=== PATIENT | male | born 1990 | race Caucasian/White ===

== ENCOUNTER 2017-03-08 10:56 | Emergency (ER) | payer SELFPAY ==
[~2017-03-08] VITALS: Ht 190.5 cm; Wt 71.5 kg
[2017-03-08 10:57] VITALS: BP 140/87; PULSE 91; RESP 20; TEMP 98.5; O2SAT 100
[2017-03-08] MEDS ORDERED: AMOX500C PO (11:43)
[2017-03-08] MEDS ORDERED: MAGICPED SWISH-SPIT (11:43)
[2017-03-08] MEDS ORDERED: PERI0.126 SWISH-SPIT (11:43)
--- NOTE | 2017-03-08 11:44 | PD ---
HPI Chief Complaint: Oral / Dental Pain or Problem Time Seen by Provider: 11:41 Travel History International Travel<30 days: No Contact w/Intl Traveler<30days: No Traveled to known affect area: No History of Present Illness HPI 26-year-old male presents emergency Department with complaint of right upper tooth pain 2 days. Noticed some milky white drainage from the area this morning. Denies fever, vomiting. Denies facial edema. Has taken Tylenol for symptom management. Symptoms are mild in severity. Has no other medical complaints. Allergies to ibuprofen. No other modifying factors or associated signs and symptoms. PFSH Social History Tobacco Use: No Allergies-Medications (Allergen,Severity, Reaction): Coded Allergies: ibuprofen (Verified Allergy, Severe, Anaphylaxis, 03/08/17) Reported Meds & Prescriptions Reported Meds & Active Scripts Active Peridex Liq (Chlorhexidine Gluconate (Mouth) Liq) 0.12% Soln 15 Ml SWISH-SPIT BID 10 Days Magic Mouthwash Pediatric/Adult Liq (Lidocaine/Diphenhydr/Alum/Mg/Simeth) 60 Ml Susp 5 Ml SWISH-SPIT Q3HR PRN Each 5mL contains: Diphenydramine 4.5mg, Viscous Lidocaine 2% 10mg, Maalox Advanced Regular Strength 2.7ml Amoxicillin 500 Mg Cap 500 Mg PO BID 10 Days Review of Systems Except as stated in HPI: all other systems reviewed are Neg Physical Exam Narrative GENERAL: Well-nourished, well-developed female patient, in no acute distress; afebrile, nontoxic-appearing SKIN: Warm and dry. HEAD: Atraumatic. Normocephalic. No facial edema, erythema, tenderness on palpation. No lymphadenopathy. EYES: Pupils equal and round. No scleral icterus. No injection or drainage. ENT: Mucosa pink and moist. Airway patent. MOUTH: Mucous membranes moist, no lesions, tongue and gums appear normal. Poor dentition throughout. Tooth #3 is decayed down to the gumline; areas with tenderness on palpation; no drainage noted. Surrounding gingiva is without erythema, edema, drainage. No obvious abscess noted. NECK: Trachea midline. No lymphadenopathy. CARDIOVASCULAR: Regular rate. RESPIRATORY: No accessory muscle use. GASTROINTESTINAL: Flat. MUSCULOSKELETAL: No obvious deformities. No clubbing. No cyanosis. No edema. NEUROLOGICAL: Awake and alert. Oriented 3. No obvious cranial nerve deficits. Motor grossly within normal limits. Normal speech. PSYCHIATRIC: Appropriate mood and affect; insight and judgment normal. Data Data Last Documented VS Vital Signs Date Time Temp Pulse Resp B/P (MAP) Pulse Ox O2 Delivery O2 Flow Rate FiO2 03/08/17 11:48 03/08/17 10:57 98.5 91 20 100 Room Air Orders Orders Acetaminophen (Tylenol) (03/08/17 12:00) MDM Medical Decision Making Medical Screen Exam Complete: Yes Emergency Medical Condition: Yes Medical Record Reviewed: Yes Differential Diagnosis Toothache, dental abscess, dental caries, gingivitis Narrative Course 26-year-old male with poor dentition throughout and dentalgia tooth #3 that is decayed down to the gumline. Patient is afebrile and nontoxic-appearing. Denies fever, vomiting. Has no facial edema or erythema. Amoxicillin, Magic mouthwash, Peridex mouth rinse prescribed for home. Patient allergic to ibuprofen. Instructed patient take Tylenol as directed nausea for pain. Patient provided emergency dental information sheet. Instructed patient to follow up with dentist. Instructed patient to follow up with primary care provider. Patient verbalizes understanding and agreement with treatment plan. Patient is medically cleared and stable for discharge. Discussed reasons to return to the emergency department. Patient agrees with treatment plan. The patients vital signs are stable and the patient is stable for outpatient follow- up and treatment. Patient discharged home, stable and in no acute distress. Diagnosis Primary Impression: Dentalgia Referrals: Dentist Primary Care Physician Patient Instructions: Dental Abscess (ED), Dental Caries (ED), General Instructions, Toothache (ED) Departure Forms: Tests/Procedures, Work Release Enter return to work date: Mar 09, 2017 Additional Instructions: Complete full course of antibiotics Tylenol as directed and as needed to reduce pain and inflammation Use Magic mouthwash rinse as directed and as needed to decrease pain Use Peridex as directed for oral hygiene Warm or cool compresses to the affected area Follow-up with dentist Follow-up with primary care provider Return to emergency department immediately with worsening of symptoms Med/Other Pt SpecificInfo: Prescription(s) given Scripts Chlorhexidine Gluconate (Mouth) Liq (Peridex Liq) 0.12% Soln 15 ML SWISH-SPIT BID for 10 Days, #473 ML 0 Refills Prov: Anastasiia Blount 03/08/17 Hzpjojwlrsammtt-Dvvwzmmmi-Bjf-Alum-Simeth Liq (Magic Mouthwash Pediatric/Adult Liq) 60 Ml Susp 5 ML SWISH-SPIT Q3HR Y for PAIN SCALE 1 TO 10, #60 ML 0 Refills Each 5mL contains: Diphenydramine 4.5mg, Viscous Lidocaine 2% 10mg, Maalox Advanced Regular Strength 2.7ml Prov: Anastasiia Blount 03/08/17 Amoxicillin (Amoxicillin) 500 Mg Cap 500 MG PO BID for Infection for 10 Days, CAP 0 Refills Prov: Anastasiia Blount 03/08/17 Disposition: 01 DISCHARGE HOME Condition: Stable Anastasiia Blount Mar 08, 2017 11:44
[2017-03-08] MEDS ORDERED: ACETAMINOPHEN 325 MG TAB PO ONE (12:00)
== END 2017-03-08 12:05 | disposition home or self-care (01) ==
LOC: NEPK 10:56
DX: K08.89 Other specified disorders of teeth and supporting structures (principal); K02.9 Dental caries, unspecified
CPT/HCPCS: 99284

== ENCOUNTER 2017-05-05 14:46 | Emergency (ER) | payer OTHER ==
[~2017-05-05] VITALS: Ht 177.8 cm; Wt 70.0 kg
[~2017-05-05 14:46] MED LIST: AMOX500C PO; MAGICPED SWISH-SPIT; PERI0.126 SWISH-SPIT
[2017-05-05 14:50] VITALS: BP 124/72; PULSE 80; RESP 14; O2SAT 100
--- NOTE | 2017-05-05 15:46 | RADRPT ---
EXAM DATE/TIME: 05/05/2017 15:28 [facility] COMPARISON: No previous studies available for comparison. INDICATIONS : Right ankle pain after twisting ankle at work today. MEDICAL HISTORY : Smoker. SURGICAL HISTORY : None. ENCOUNTER: Initial ACUITY: 1 day PAIN SCORE: 3/10 LOCATION: Right entire ankle. FINDINGS: Three views of the right ankle demonstrate no fracture or dislocation. Ankle mortise is intact. Outside Collector alization is within normal limits and there is no significant arthropathy. No soft tissue abnormality or radiopaque foreign body is identified. There is a 4 mm sclerotic focus in the lateral malleolus l ikely representing a bone island. CONCLUSION: No acute right ankle abnormality is identified. Kevin Francisco MD on May 05, 2017 at 15:43 Board Certified Radiologist. This report was verified electronically.
--- NOTE | 2017-05-05 16:53 | PD ---
HPI Chief Complaint: Injury Time Seen by Provider: 16:50 Travel History International Travel<30 days: No Contact w/Intl Traveler<30days: No Traveled to known affect area: No History of Present Illness HPI 26-year-old male presents to emergency department complaining of right ankle pain after twisting at work while walking around a desk. First pain to lateral and medial aspects. Denies paresthesias, loss of sensation to the affected extremity. Pain is worse with flexion and extension of the foot. Has not taken any medication or tried any treatments to alleviate his symptoms. Rates pain 7/10. Describes pain as a throbbing sensation. Says the pain shoots up his leg when he moves his ankle. Pain is worse with trying to ambulate. Pain is decreased while at rest. Allergies ibuprofen. Has no medical complaints. No other modifying factors or associated signs and symptoms. [facility] Social History Alcohol Use: Yes Tobacco Use: No Substance Use: No Allergies-Medications (Allergen,Severity, Reaction): Coded Allergies: ibuprofen (Verified Allergy, Severe, Anaphylaxis, 03/08/17) Reported Meds & Prescriptions Reported Meds & Active Scripts Active Peridex Liq (Chlorhexidine Gluconate (Mouth) Liq) 0.12% Soln 15 Ml SWISH-SPIT BID 10 Days Magic Mouthwash Pediatric/Adult Liq (Lidocaine/Diphenhydr/Alum/Mg/Simeth) 60 Ml Susp 5 Ml SWISH-SPIT Q3HR PRN Each 5mL contains: Diphenydramine 4.5mg, Viscous Lidocaine 2% 10mg, Maalox Advanced Regular Strength 2.7ml Amoxicillin 500 Mg Cap 500 Mg PO BID 10 Days Review of Systems Except as stated in HPI: all other systems reviewed are Neg Physical Exam Narrative GENERAL: Well-nourished, well-developed male patient, in no acute distress SKIN: Warm and dry. HEAD: Atraumatic. Normocephalic. EYES: Pupils equal and round. No scleral icterus. No injection or drainage. ENT: Mucosa pink and moist. Airway patent. NECK: Trachea midline. CARDIOVASCULAR: Regular rate. RESPIRATORY: No accessory muscle use. GASTROINTESTINAL: Flat. MUSCULOSKELETAL: Right ankle with point tenderness to the lateral and medial malleolar sounds; with edema and without erythema or ecchymosis; no obvious deformity; 2+ pedal pulse; sensory intact. No obvious deformities. No clubbing. No cyanosis. No edema. NEUROLOGICAL: Awake and alert. Oriented 3. No obvious cranial nerve deficits. Motor grossly within normal limits. Normal speech. PSYCHIATRIC: Appropriate mood and affect; insight and judgment normal. Data Data Last Documented VS Vital Signs Date Time Temp Pulse Resp B/P (MAP) Pulse Ox O2 Delivery O2 Flow Rate FiO2 05/05/17 14:50 80 14 124/72 (89) 100 Orders Orders Ankle, Complete (Sah7cef) (05/05/17 15:17) Splint Or Brace Apply/Monitor (05/05/17 16:50) Crutches (05/05/17 16:50) Ed Discharge Order (05/05/17 16:50) MDM Medical Decision Making Medical Screen Exam Complete: Yes Emergency Medical Condition: Yes Medical Record Reviewed: Yes Differential Diagnosis Ankle fracture, ankle strain, ankle injury Narrative Course 26-year-old male with right ankle injury. I offered the patient pain medication while in the ER and he declined. Right ankle x-ray ordered. 1650: Right ankle x-ray concludes: Last 24 hours Impressions Ankle X-Ray 05/05/17 1517 Signed Impressions: Service Date/Time: April 15:28 - CONCLUSION: No acute right ankle abnormality is identified. Kevin Francisco MD X-ray findings discussed with the patient. José Miguel bandage, ankle stirrup splint, crutches provided for support. Patient is allergic to ibuprofen. Instructed patient to take Tylenol as directed and as needed for pain. Instructed patient to follow up with primary care provider. Patient verbalizes understanding and agreement with treatment plan. Patient is medically cleared and stable for discharge. Discussed reasons to return to the emergency department. Patient agrees with treatment plan. The patients vital signs are stable and the patient is stable for outpatient follow-up and treatment. Patient discharged home, stable and in no acute distress. Diagnosis Primary Impression: Right ankle sprain Qualified Codes: S93.401A - Sprain of unspecified ligament of right ankle, initial encounter Referrals: [facility] Primary Care Physician Patient Instructions: Ankle Sprain (ED), Ankle Stirrup Splint (ED), Crutch Instructions (ED), General Instructions Additional Instructions: Tylenol or ibuprofen as directed and as needed for pain and inflammation Rest, ice, compress, and elevate extremity to decrease pain and inflammation Ankle Brace for support José Miguel bandage for compression and support Crutches for support Avoid aggravating activity; increase activity as tolerated Follow-up with primary care provider Return to the emergency department immediately with worsening of symptoms Med/Other Pt SpecificInfo: No Meds Exist/No RX given Disposition: 01 DISCHARGE HOME Condition: Stable Anastasiia Blount ELECT[employer] MECH[employer]ICAL TECHNICIAN May 05, 2017 16:53
== END 2017-05-05 17:04 | disposition home or self-care (01) ==
LOC: NEPK 14:46
DX: S93.401A Sprain of unspecified ligament of right ankle, initial encounter (principal); X50.1XXA Overexertion from prolonged static or awkward postures, initial encounter; Y93.01 Activity, walking, marching and hiking; Y99.0 Civilian activity done for income or pay
CPT/HCPCS: 73610; 99283; E0113; L1906

== ENCOUNTER 2017-08-12 21:25 | Emergency (ER) | payer SELFPAY ==
[2017-08-12 21:26] VITALS: BP 145/85; PULSE 80; RESP 16; TEMP 98.3; O2SAT 100
[2017-08-12] MEDS ORDERED: CLIN150C14 PO (21:52)
[2017-08-12] MEDS ORDERED: ACETAMINOPHEN/HYDROcodone 325 MG/5 MG TAB PO ONE (22:00)
[2017-08-12] MEDS ORDERED: CLINDAMYCIN INJ 900 MG in SODIUM CHLORIDE 0.9% INJ 100 ML IV ONE (22:00)
--- NOTE | 2017-08-12 22:21 | PD ---
HPI Chief Complaint: Oral / Dental Pain or Problem Time Seen by Provider: 21:46 Travel History International Travel<30 days: No Contact w/Intl Traveler<30days: No Traveled to known affect area: No History of Present Illness HPI 27-year-old male complains of facial pain. He has been taking amoxicillin for a dental infection which was switched to clindamycin today took 1 150 mg tablet. His is no significant improvement. No fever. He follows with [facility]. The pain is worse with palpation. Constant throbbing quality is reported. Marginal improvement with NSAIDs. PFSH Past Medical History Hepatitis: Yes (c) Past Surgical History Cholecystectomy: Yes Social History Alcohol Use: Yes Tobacco Use: No Substance Use: No Allergies-Medications (Allergen,Severity, Reaction): Coded Allergies: ibuprofen (Verified Allergy, Severe, Anaphylaxis, 03/08/17) Reported Meds & Prescriptions Reported Meds & Active Scripts Active Peridex Liq (Chlorhexidine Gluconate (Mouth) Liq) 0.12% Soln 15 Ml SWISH-SPIT BID 10 Days Magic Mouthwash Pediatric/Adult Liq (Lidocaine/Diphenhydr/Alum/Mg/Simeth) 60 Ml Susp 5 Ml SWISH-SPIT Q3HR PRN Each 5mL contains: Diphenydramine 4.5mg, Viscous Lidocaine 2% 10mg, Maalox Advanced Regular Strength 2.7ml Reported Clindamycin (Clindamycin HCl) 150 Mg Cap 150 Mg PO Q6H Review of Systems Except as stated in HPI: all other systems reviewed are Neg General / Constitutional: No: Fever HENT: Positive: Dental Difficulties Physical Exam Narrative GENERAL: Well-nourished well-developed 27-year-old male mild distress secondary to pain SKIN: Warm and dry. HEAD: Atraumatic. Normocephalic. EYES: Pupils equal and round. No scleral icterus. No injection or drainage. ENT: No nasal bleeding or discharge. Mucous membranes pink and moist. Dental fractures of the right second premolar and first molar with marked tenderness. No appreciable fluctuance or abscess on the gingival or buccal mucosa. Generalized swelling about the right face maxillary distribution. Right face is tender. No fluctuance. NECK: Trachea midline. No JVD. CARDIOVASCULAR: Regular rate and rhythm. RESPIRATORY: No accessory muscle use. Clear to auscultation. Breath sounds equal bilaterally. GASTROINTESTINAL: Abdomen soft, non-tender, nondistended. Hepatic and splenic margins not palpable. MUSCULOSKELETAL: Extremities without clubbing, cyanosis, or edema. No obvious deformities. NEUROLOGICAL: Awake and alert. No obvious cranial nerve deficits. Motor grossly within normal limits. Five out of 5 muscle strength in the arms and legs. Normal speech. Data Data Last Documented VS Vital Signs Date Time Temp Pulse Resp B/P (MAP) Pulse Ox O2 Delivery O2 Flow Rate FiO2 08/12/17 21:26 98.3 80 16 145/85 (105) 100 Room Air Orders Orders Clindamycin Inj (Cleocin Inj) (08/12/17 22:00) ^ Insert Iv (08/12/17 21:50) Acetamin-Hydrocod 325-5 Mg ([place] 5-325 (08/12/17 22:00) Ed Discharge Order (08/12/17 22:15) [facility] Medical Decision Making Medical Screen Exam Complete: Yes Emergency Medical Condition: Yes Medical Record Reviewed: Yes Differential Diagnosis Abscess, dental carry, cellulitis Narrative Course Patient has clindamycin. We'll give a dose of IV clindamycin here, 900mg. Anticipated resolution of pain swelling and pain. the patient will return if there isn't marked improvement by late tomorrow morning. Diagnosis Primary Impression: Dental infection Referrals: Dentist 2 days Med/Other Pt SpecificInfo: No Meds Exist/No RX given Disposition: 01 DISCHARGE HOME Condition: Stable Berny Gallardo MD Aug 12, 2017 22:21
== END 2017-08-12 23:14 | disposition home or self-care (01) ==
LOC: NEPC 21:25
DX: K04.7 Periapical abscess without sinus (principal); Z86.19 Personal history of other infectious and parasitic diseases; Z88.6 Allergy status to analgesic agent; Z79.899 Other long term (current) drug therapy
CPT/HCPCS: 96365

== ENCOUNTER 2017-08-19 22:27 | Emergency (ER) | payer SELFPAY ==
[~2017-08-19] VITALS: Ht 190.5 cm; Wt 70.0 kg
[~2017-08-19 22:27] MED LIST changes: -AMOX500C PO; +CLIN150C14 PO
[2017-08-19 22:32] VITALS: BP 154/82; PULSE 111; RESP 26; O2SAT 100
[2017-08-19 22:33] VITALS: PULSE 45; O2SAT 45
[2017-08-19] MEDS ORDERED: ONDANSETRON HCL 4 MG/2 ML VIAL ONE (22:33)
[2017-08-19 22:35] VITALS: BP 154/82; PULSE 111; RESP 26; TEMP 98.7; O2SAT 100; O2SAT 89; O2SAT 99
[2017-08-19] MEDS ORDERED: NALOXONE HCL 0.4 MG/ML AMP IV PUSH ONE (22:45)
[2017-08-19] MEDS ORDERED: SODIUM CHLOR 0.9% 1000 ML INJ 1,000 ML IV ONE (22:45)
--- NOTE | 2017-08-19 23:33 | PD ---
HPI Chief Complaint: OD/ Ingestion Time Seen by Provider: 22:36 Travel History International Travel<30 days: No Contact w/Intl Traveler<30days: No Traveled to known affect area: No History of Present Illness HPI Patient is a 27-year-old male presents emergency department from the waiting room for evaluation of altered mental status. On initial presentation patient is obtunded,. GCS of 3, unable to provide any history. After initial resuscitative efforts the patient did admit to having heroin tonight. Discovered by mother and father who states they were having visitation rights with him today and then on the way back to his [facility] he allegedly injected heroin in the back of their car. They drove him here for emergent evaluation. Symptoms are severe, context as above, associated with pale skin diaphoresis and apnea, now resolved. PFSH Past Medical History Hepatitis: Yes (c) Tetanus Vaccination: Unknown Influenza Vaccination: No Past Surgical History Cholecystectomy: Yes Social History Alcohol Use: No Tobacco Use: Yes Substance Use: Yes (heroin) Allergies-Medications (Allergen,Severity, Reaction): Coded Allergies: ibuprofen (Verified Allergy, Severe, Anaphylaxis, 03/08/17) Reported Meds & Prescriptions Reported Meds & Active Scripts Active Peridex Liq (Chlorhexidine Gluconate (Mouth) Liq) 0.12% Soln 15 Ml SWISH-SPIT BID 10 Days Magic Mouthwash Pediatric/Adult Liq (Lidocaine/Diphenhydr/Alum/Mg/Simeth) 60 Ml Susp 5 Ml SWISH-SPIT Q3HR PRN Each 5mL contains: Diphenydramine 4.5mg, Viscous Lidocaine 2% 10mg, Maalox Advanced Regular Strength 2.7ml Reported Clindamycin (Clindamycin HCl) 150 Mg Cap 150 Mg PO Q6H Review of Systems Except as stated in HPI: all other systems reviewed are Neg Physical Exam Narrative GENERAL: Well-developed thin, GCS of 3 agonal respirations SKIN: Focused skin assessment warm/dry. HEAD: Atraumatic. Normocephalic. EYES: Pupils pinpoint and sluggish response ENT: No nasal bleeding or discharge. Mucous membranes pink and moist. NECK: Trachea midline. No JVD. CARDIOVASCULAR: Very bradycardic. RESPIRATORY: Agonal respirations GASTROINTESTINAL: Abdomen soft, non-tender, nondistended. Hepatic and splenic margins not palpable. MUSCULOSKELETAL: No obvious deformities. No clubbing. No cyanosis. No edema. NEUROLOGICAL: GCS of 3, agonal respirations PSYCHIATRIC: Later denied any suicidal or homicidal ideation. Data Data Last Documented VS Vital Signs Date Time Temp Pulse Resp B/P (MAP) Pulse Ox O2 Delivery O2 Flow Rate FiO2 08/20/17 00:08 84 16 122/69 (86) 100 08/19/17 22:35 98.7 Nasal Cannula 2.00 08/19/17 22:35 100 Orders Orders Ondansetron Inj (Zofran Inj) (08/19/17 22:33) Naloxone Inj (Narcan Inj) (08/19/17 22:45) Sodium Chlor 0.9% 1000 Ml Inj (Ns 1000 M (08/19/17 22:45) MDM Medical Decision Making Medical Screen Exam Complete: Yes Emergency Medical Condition: Yes Differential Diagnosis Opiate overdose, heroin overdose, hypoxic respiratory failure, head injury unlikely. Narrative Course Patient room to the emergency department, obtunded, highly consistent with acute narcotic overdose. Patient was roomed emergently, [id number] was initiated by me, and 100% O2 is saturation wrote from 44 with excellent waveform to 99% on bag valve mask, IV access was obtained and he was given 0.8 mg of Narcan which completely reverses mental status and brought him to a GCS of 15. He was diaphoretic for a small period of time. He was observed for approximately an hour in the emergency department with no return of symptoms. He was revisited by me and had no complaints of pain anywhere, states he "did something stupid tonight". I recommend the patient 4 hour observation time after receiving Narcan for a saturation of 44 in the emergency department however he needs to get back to his retirement house and is not there by one he can stay there tonight. He understands the risks of signing out AGAINST MEDICAL ADVICE after his Narcan wears off he could return to respiratory depression and the left with or significant disability. He accepted the risks and responsibilities. He is therefore okay to be discharged Diagnosis Primary Impression: Narcotic overdose Referrals: [facility] Disposition: 07 AGAINST MEDICAL ADVICE Krystian Bunch MD Aug 19, 2017 23:33
[2017-08-20 00:08] VITALS: BP 122/69
--- NOTE | 2017-08-20 15:46 | EKG ---
Date Performed: 08/19/2017 Time Performed: 22:39:27 PTAGE: 27 years EKG: Sinus rhythm NORMAL ECG NO PREVIOUS TRACING DOCTOR: Jack Sidhu Interpretating Date/Time 08/20/2017 15:46:00
== END 2017-08-20 00:20 | disposition left against medical advice (07) ==
LOC: NEPE 22:27
DX: T40.601A Poisoning by unspecified narcotics, accidental (unintentional), initial encounter (principal); F11.10 Opioid abuse, uncomplicated; B19.20 Unspecified viral hepatitis C without hepatic coma; Z72.0 Tobacco use
CPT/HCPCS: 93005; 96374; 99284; J2310; J2405; J7030

== ENCOUNTER 2017-11-21 22:07 | Emergency (ER) | payer SELFPAY ==
[2017-11-21] MEDS: SODIUM CHLOR 0.9% 1000 ML INJ 1,000 ML IV (23:03)
[2017-11-21] MEDS: ONDANSETRON HCL 4 MG/2 ML VIAL IVP (23:05)
[2017-11-21 23:25] LABS: AUTOMATED NEUTROPHIL # 7.9 TH/MM3 (1.8-7.7); BASOPHIL # 0.1 TH/MM3 (0-0.2); BASOPHIL % 0.6 % (0.0-2.0); EOSINOPHIL % 0.3 % (0.0-4.0); HEMATOCRIT 38.5 % (39.0-51.0); HEMO FLAGS DIFF FINAL; HEMOGLOBIN 12.8 GM/DL (13.0-17.0); LYMPHOCYTE # 1.6 TH/MM3 (1.0-4.8); MEAN CELL VOLUME 84.4 FL (80.0-100.0); MEAN CORPUSCULAR HEMOGLOBIN 28.1 PG (27.0-34.0); MEAN CORPUSCULAR HGB CONC 33.3 % (32.0-36.0); MEAN PLATELET VOLUME 9.3 FL (7.0-11.0); MONO % 9.7 % (0.0-8.0); NEUT % 74.4 % (16.0-70.0); PLATELET COUNT 143 TH/MM3 (150-450); RED BLOOD COUNT 4.56 MIL/MM3 (4.50-5.90); WHITE BLOOD COUNT 10.6 TH/MM3 (4.0-11.0)
[2017-11-21 23:33] LABS: CHLORIDE 104 MEQ/L (98-107); POTASSIUM 3.7 MEQ/L (3.5-5.1); SODIUM (NA) 137 MEQ/L (136-145)
[2017-11-21 23:35] LABS: ANION GAP 1 MEQ/L (5-15); CALCIUM 8.3 MG/DL (8.5-10.1); GLUCOSE,RANDOM 92 MG/DL (74-106)
[2017-11-21 23:36] LABS: BLOOD UREA NITROGEN 11 MG/DL (7-18)
[2017-11-21 23:39] LABS: CREATININE 0.59 MG/DL (0.60-1.30); GLOMERULAR FILTRATION RATE 164 ML/MIN (>89)
== END 2017-11-22 03:16 | disposition home or self-care (01) ==
LOC: PHED 11-22 03:16
DX: T40.1X1A Poisoning by heroin, accidental (unintentional), initial encounter (principal); F19.10 Other psychoactive substance abuse, uncomplicated; B19.20 Unspecified viral hepatitis C without hepatic coma; Z72.0 Tobacco use
CPT/HCPCS: 80048; 85025; 96361; 96374; 99284-25